=== PATIENT | male | born 1980 | race Caucasian/White ===

== ENCOUNTER → 2017-09-19 | Outpatient (REF) | payer SELFPAY | LOC: M LAB REF 19:27 | DX: H10.022 Other mucopurulent conjunctivitis, left eye (principal) | CPT/HCPCS: 87070 ==

== ENCOUNTER 2017-10-29 17:28 | Emergency (ER) | payer SELFPAY ==
[2017-10-29] MEDS: CYCLOPENTOLATE 1% OPHTH SOLN 2 ML BTL OS (18:44)
[2017-10-29] MEDS: ATROPINE SULFATE 1% OP SOLN 2 ML BTL OS (18:45)
[2017-10-29] MEDS: MAXITROL OPHTH OINT 3.5 GM OS (18:46)
== END 2017-10-29 19:03 | disposition home or self-care (01) ==
LOC: M ED 17:28
DX: H21.02 Hyphema, left eye (principal)
CPT/HCPCS: 99283